=== PATIENT | male | born 1945 | race Caucasian/White ===

== ENCOUNTER 2018-09-28 19:35 | Inpatient (IN) ==
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
[2018-09-28] MEDS ORDERED: NS 500 ML IV ONE (20:53)
--- NOTE | 2018-09-28 20:53 | Diag Imaging Result Doc PS360 ---
EXAM: LUMBAR SPINE 2-VIEWS 09/28/2018 HISTORY: fall injuried lumbar spine. TECHNIQUE: Lumbosacral spine series 2 views COMMENT: The pedicles are intact. There is disc space narrowing and osteophyte formation at L3-4 and L4-5 and L5-S1. There is dense calcification of the abdominal aorta which does not appear to be distended. No evidence of acute fracture or subluxation is present. IMPRESSION: No acute bony abnormality. Degenerative disc disease. Electronically signed by Orestes Mtz 09/28/2018 8:51 PM
--- NOTE | 2018-09-28 21:20 | EKG Report ---
Test Performed on : 09/28/2018 7:42:13 PM Test Reason : syncope Blood Pressure : / mmHG Vent. Rate : 075 BPM Atrial Rate : 086 BPM P-R Int : 000 ms QRS Dur : 142 ms QT Int : 460 ms P-R-T Axes : 000 197 -27 degrees QTc Int : 513 ms Suspect arm lead reversal, interpretation assumes no reversal Wide QRS rhythm. Right bundle branch block Cannot rule out Anteroseptal infarct , age undetermined Abnormal ECG When compared with ECG of 01-AUG-2014 09:27, Wide QRS rhythm. has replaced Junctional rhythm. Unconfirmed Result
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
[2018-09-28 21:31] LABS: BASO# 0.02 X1000 (0.0-0.2); BASO% 0.2 % (0.0-0.8); EOS# 0.13 X1000 (0.0-0.7); EOS% 1.2 % (0.0-10.0); HEMATOCRIT 42.4 % (42.0-52.0); HEMOGLOBIN 13.8 g/dL (14.0-18.0); IMM GRAN# 0.03 X1000 (0.0-0.04); IMM GRAN% 0.3 % (0.0-0.5); LYMPH# 2.23 X1000 (1.2-3.4); LYMPH% 20.6 % (20.5-51.1); MCHC 32.5 g/dL (33-37); MCV 86.2 FL (81-99); MONO# 0.76 X1000 (0.11-0.59); NEUT# 7.66 X1000 (1.4-6.5); NEUT% 70.7 % (42.2-75.2); PLT 179 X1000 (130-400); RBC 4.92 XMIL (4.7-6.1); RDW 15.1 % (11.5-14.5); WBC 10.83 X1000 (4.8-10.8)
[2018-09-28] MEDS ORDERED: G.I. COCKTAIL PO ONE (21:50)
[2018-09-28 21:51] LABS: ALB/GLOB RATIO 1.3; ALBUMIN 4.1 g/dL (3.5-5.0); CALCIUM 8.2 mg/dL (8.8-10.2); CREATININE 1.4 mg/dL (0.7-1.2); POTASSIUM 4.8 mmol/L (3.5-5.1); TOTAL BILIRUBIN 0.64 mg/dL (0.20-1.00); TOTAL PROTEIN 7.3 g/dL (6.3-8.3)
--- NOTE | 2018-09-28 23:02 | PROVIDER DOCUMENTATION ---
This chart was entered by Shantell aNva Scribe, acting as scribe for Avelino Hu MD. HPI-General Adult - General Chief Complaint: Dizziness Stated Complaint: PASSED OUT/FACIAL INJURY Time Seen by Provider: 09/28/18 20:43 Source: patient Allergies/Adverse Reactions: Patient Allergies Allergy/AdvReac Type Severity Reaction Status Date / Time No Known Allergies Allergy Verified 08/01/14 09:37 Home Medications: Home Medication List Medication Instructions Recorded Confirmed Last Taken Type Pantoprazole [Protonix] 40 mg PO DAILY@0700 02/03/14 06/29/16 06/29/16 07:30 History Potassium Chloride 10 meq PO DAILY 06/05/14 06/29/16 06/29/16 07:30 History Alprazolam [Xanax] 0.5 mg PO BID 06/28/16 06/29/16 06/28/16 18:00 History Aspirin 81 mg PO DAILY 06/28/16 06/29/16 06/28/16 18:00 History Atorvastatin Calcium [Lipitor] 40 mg PO DAILY 06/28/16 06/29/16 06/29/16 07:30 History Carvedilol [Coreg] 3.125 mg PO BID 06/28/16 06/29/16 06/29/16 07:30 History Cholecalciferol (Vitamin D3) 2,000 unit PO BID 06/28/16 06/29/16 06/28/16 12:00 History [Vitamin D3] Fish Oil/Dha/Epa [Fish Oil 1,200 1 each PO DAILY 06/28/16 06/29/16 06/28/16 08:00 History mg Fish Oil] Furosemide [Lasix] 40 mg PO DAILY 06/28/16 06/29/16 06/29/16 07:30 History Hum Insulin NPH/Reg Insulin Hm 0 unit SQ PRN PRN 06/28/16 06/29/16 06/27/16 18:00 History [Novolin 70-30 100 Unit/ml Vial] Oxycodone HCl/Acetaminophen 1 each PO 4XDAY 06/28/16 06/29/16 06/28/16 11:30 History [Endocet 10-325 mg Tablet] Sennosides/Docusate Sodium [Stool 1 each PO TID 06/28/16 06/29/16 06/28/16 21:00 History Softener Tablet] Sertraline HCl [Zoloft] 100 mg PO DAILY 06/28/16 06/29/16 06/28/16 18:00 History - History of Present Illness -Gen Adult Nature of Presenting Problems: Pt is 73/M presenting to ED after becoming dizzy at home when looking up into a cabinet, he then fell and hit his philtrum on the counter and passed out., Pt sts that he has had several episodes of dizziness over the last week. After passing out, pt took 2 nitro. He sts that he is now SOB and nauseous. Location of Pain/Injury: reports: face Pain Radiation: reports: no radiation Quality of Pain: reports: none Severity: reports: mild Onset/Duration: reports: gradual Timing: reports: still present Context/Activities at Onset: reports: none Modifying Factors: improves with: nothing Associated Symptoms: reports: dizziness, nausea, shortness of breath. denies: cough, vomiting Similar Symptoms Previously?: Yes Recently seen or treated by another doctor?: No Review of Systems - Adult - REVIEW OF SYSTEMS - ADULT Constitutional: reports: no symptoms reported. denies: chills, fever Eyes: reports: no symptoms reported Ears, Nose, Mouth & Throat: reports: no symptoms reported Cardiovascular: reports: no symptoms reported. denies: chest pain Respiratory: reports: shortness of breath. denies: cough Gastrointestinal: reports: nausea. denies: abdominal pain, diarrhea, vomiting Genitourinary: reports: no symptoms reported Musculoskeletal: reports: no symptoms reported Integumentary: reports: no symptoms reported Neurological: reports: no symptoms reported. denies: dizziness/vertigo, headache/migraines Psychiatric: reports: no symptoms reported Endocrine: reports: no symptoms reported Hematologic/Lymphatic: reports: no symptoms reported Allergic/Immunologic: reports: no symptoms reported All Other Systems: Reviewed and Negative Past History - Adult - PAST MEDICAL HISTORY-ADULT Review of Records: reports: Old Records Reviewed, Nursing Assessment Review, Medications Reviewed, Social history reviewed & non-contributory. Cardiovascular: reports: CHF, HTN, hyperlipidemia, pacemaker Gastrointestinal: reports: cancer (colon) Musculoskeletal: reports: arthritis Neurological: reports: dementia Endocrine/Immune: reports: Diabetes, Lymphoma (large basel cell ) Other Conditions: reports: other cancer (groin cancer) - PRIOR SURGERIES/PROCEDURES Surgical/Procedure History: reports: cardiac stent, indwelling device (port a cath placed), bowel surgery (colon resection), other (right eye removed with prosthesis) - IMMUNIZATION STATUS Flu Vaccine: UTD - SOCIAL HISTORY Smoking: denies, non-smoker Substance Use: none/never Alcohol Use Frequency: never Living Situation: family Physical Exam-General - PHYSICAL EXAM-ADULT Initial Vital Signs Reviewed: Yes - CONSTITUTIONAL General Appearance: appears well, alert - EYES Eyes: PERRL/EOMI, pink conjunctivae - HEAD, EARS, NOSE, MOUTH & THROAT HENMT: normocephalic/atraumatic, moist mucous membranes, normal ENT inspection - NECK Neck: non-tender, full range of motion, supple - RESPIRATORY Respiratory: lungs clear - CARDIOVASCULAR Cardiovascular: regular rate, rhythm - MUSCULOSKELETAL Extremity: normal range of motion, non-tender, normal gait, normal inspection - SKIN Integumentary: normal color, warm/dry - NEUROLOGIC Neurologic: grossly normal - PSYCHIATRIC Psych/Mental Status: normal mood/affect, normal thought content, normal thought process, oriented x 3 Progress - PLAN OF CARE/RESULTS Progress/Plan/Lab Results: Vital Signs - 8 hr 09/28/18 19:35 Temperature 97.5 F L Pulse Rate 75 Respiratory Rate 17 Blood Pressure 94/59 O2 Sat by Pulse Oximetry 97 Laboratory Results - last 24 hr 09/28/18 20:13 POC Glucose 180 H D Orders Category Date Time Status CT HEAD W/O CONTRAST [CT] Stat Exams 09/28/18 19:58 Completed FACIAL BONES [RAD] Stat Exams 09/28/18 19:59 Completed LUMBAR SPINE 2-VIEWS [RAD] Stat Exams 09/28/18 20:00 Taken Result Diagrams: 09/28/18 20:19 09/28/18 20:19 Departure - Departure Date of Disposition Decision: 09/28/18 Time of Disposition Decision: 23:02 DIAGNOSIS: Syncope Qualifiers: Syncope type: unspecified Qualified Code(s): R55 - Syncope and collapse Disposition: ADMITTED INPATIENT 09 Certified Medical Emergency: Emergent Condition: Stable Referrals and Follow-Ups: Alessio Sanders MD [Primary Care Provider] - - Critical Care Note This patient required my direct & personal management of CC.: No Attestation - Physician/ ANTONIA Attestation Patient care was provided by Advanced Practice Provider:: No The physician spent face to face time with patient:: Yes Advanced Practice Provider documentation review:: Supervising physician onsite and consulted in the evaluation and care of this patient. The physician did have a face to face encounter with the patient. This chart was documented by the indicated scribe, (Shantell Nava, Scribe) and accurately reflects the services I performed and decisions made by me, Avelino Hu MD, as attested by the provider's signature.
[2018-09-28 23:33] LABS: URINE SOURCE CLEAN CATCH
[2018-09-28 23:41] LABS: BILIRUBIN URINE NEGATIVE (NEGATIVE); BLOOD URINE NEGATIVE (NEGATIVE); COLOR YELLOW; GLUCOSE URINE 100 mg/dL (NEGATIVE); KETONE URINE TRACE mg/dL (NEGATIVE); LEUKOCYTES URINE NEGATIVE (NEGATIVE); NITRITE URINE NEGATIVE (NEGATIVE); PH URINE 5.5; PROTEIN URINE TRACE mg/dL (NEGATIVE); SP GRAVITY URINE 1.028; TURBIDITY URINE CLEAR (CLEAR); UROBILINOGEN URINE 2 mg/dL (NORMAL)
[2018-09-28 23:57] LABS: UR EPITHELIAL CELLS <10 /HPF (<10); URINE BACTERIA NEGATIVE /HPF; URINE RBC <10 /HPF (<10); URINE WBC <10 /HPF (<10)
[2018-09-29] MEDS ORDERED: TYLENOL PO PRN (00:56)
[2018-09-29] MEDS ORDERED: LOVENOX SUBQ SCH (01:15)
[2018-09-29 01:17] LABS: URINE CASTS NONE SEEN; URINE YEAST NONE SEEN
[2018-09-29 01:18] LABS: URINE CRYSTALS CA OXALATE PRESENT; URINE SMALL ROUND CELLS NONE SEEN
[2018-09-29] MEDS: HUMULIN R SUBQ SCH ×5 (02:51→21:36)
[2018-09-29] MEDS: BACTROBAN OINTMENT TOP SCH ×3 (02:51→21:36)
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
[2018-09-29] MEDS: PERCOCET-10 PO PRN ×3 (03:36→17:12)
[2018-09-29] MEDS: PROTONIX PO SCH (06:35)
[2018-09-29] MEDS: ZOLOFT PO SCH (08:40)
[2018-09-29] MEDS: FISH OIL CONCENTRATE PO SCH (08:40)
[2018-09-29] MEDS: ASPIRIN PO SCH (08:40)
[2018-09-29] MEDS: PERICOLACE PO SCH ×3 (08:40→17:08)
[2018-09-29] MEDS: LIPITOR PO SCH (08:41)
[2018-09-29] MEDS: VITAMIN D PO SCH ×2 (08:41→21:36)
[2018-09-29] MEDS ORDERED: KLOR-CON PO SCH (09:00)
[2018-09-29] MEDS ORDERED: LASIX PO SCH (09:00)
[2018-09-29] MEDS: ZOFRAN IV PRN ×2 (09:41→18:38)
[2018-09-29] MEDS: TUMS PO PRN (12:40)
--- NOTE | 2018-09-29 13:26 | PROGRESS NOTE ---
DATE: 09/29/2018 PRIMARY CARE PHYSICIAN: Dr. Alessio Sanders. 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 Per report, patient states he looked up while in his kitchen and developed dizziness. The patient suffered a syncopal episode immediately thereafter. He struck his upper lip and arm upon falling. He is unsure as to how long he was unresponsive. The patient's family and EMS were contacted. Patient was transported to the emergency department for further evaluation and management. Upon arrival, blood pressure was noted to be low at 94/59. Laboratory data returned with only a slight increase in creatinine above baseline to 1.4. Because of patient's extensive cardiac history, patient was admitted for further evaluation and management. Of note, over the course of the last week, patient has experienced increasing dizziness. He has noted a decrease in appetite as well as a decrease in energy. He has had some urinary hesitancy as well as some urinary incontinence but denies dysuria, hematuria, or pyuria. He has chronic shortness of breath. He has noted this to be slightly above his baseline. Overnight, patient states he did reasonably well. He has had no further syncopal episodes. This morning, he ate breakfast and developed some associated nausea. He attributes this to the sausage. OBJECTIVE: T-max 98.6 degrees, heart rate 60 to 82, respirations 16 to 20, blood pressure 94 to 158 over 59 to 98.General: Well nourished, well developed, no acute distress. Cardiovascular: Regular rate and rhythm. No significant murmurs, rubs, or gallops. Pulmonary: Clear to auscultation bilaterally. Abdomen: Soft, nontender, nondistended. Positive bowel sounds. Extremities: Moves all extremities well. No significant clubbing, cyanosis, or edema. Dermatologic: Evaluation reveals no evidence of rash. LABORATORY DATA: None. ASSESSMENT AND PLAN: 1. Syncopal episode-in the setting of congestive heart failure and extensive cardiac history, cardiac etiology will need to be ruled out. We will continue patient on telemetry. Echocardiogram has been ordered. I discussed case with Dr. Bill. We will have him consult and consider pacemaker/defibrillator interrogation. If cardiac etiology is deemed negative, we will consider alternative sources including inner ear, carotid artery disease, medication associated, and orthostasis in etiology. 2. Systolic congestive heart failure-we will continue patient on Coreg therapy. We will hold patient's Lasix for now. We will follow his volume status. As above, we will plan echocardiogram in the near future. 3. Acute renal failure-the patient's creatinine has increased to 1.4 above his baseline of 1.1. We will hold patient's Lasix as described above. 4. Diabetes-we will continue sliding scale insulin. 5. History of colon cancer-we will remain aware. He is followed routinely by Dr. Shelton. 6. Hyperlipidemia-we will continue patient on atorvastatin therapy. 7. Atrial fibrillation-patient's EKG suggests a paced rhythm. He is anticoagulated with Xarelto therapy. We will remain aware. 8. Hypertension-I am concerned the patient may be experiencing orthostatic symptoms. We will hold Lasix as above. We will continue Coreg therapy. 9. Disposition-at this point, patient continues to require jail care in a hospital setting. We will plan discharge home once appropriate. cc: MD Alessio Rangel MD
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
--- NOTE | 2018-09-29 14:51 | Diag Imaging Result Doc PS360 ---
CERVICAL SPINE 2-VIEWS - 09/29/2018 INDICATION: syncope TECHNIQUE: COMPARISON: None FINDINGS: C7 is completely obscured. Alignment is anatomic. No fracture or dislocation. There are multiple metallic foreign bodies in the soft tissues of the upper chest and neck. There is mild degenerative disc disease at C5-6. IMPRESSION: No acute injury. Electronically signed by Adams Myers 09/29/2018 2:49 PM
--- NOTE | 2018-09-29 16:44 | ECHO REPORT ---
ORDER DATE: 09/29/2018 STUDY PERFORMED: A 2D echocardiogram. MEASUREMENTS: Interventricular septum 1.0, left ventricular posterior wall 1.1, diastolic diameter 5.6, left atrium 5, aorta 3.5 cm. SUMMARY OF THE 2-DIMENSIONAL IMAGIN. Technically suboptimal study. Very poor acoustic window. 2. Optison was used to assess left ventricular systolic function. Normal left ventricular cavity size. Estimated ejection fraction of 40 percent to 45 percent. There is apical hypokinesis. 3. Aortic valve leaflets were sclerosed, trileaflet. 4. Pulmonic valve was normal. There was mild pulmonary regurgitation. 5. There was mitral annular calcification. 6. Tricuspid valve was normal. 7. Pacing leads were noted in the right chamber. 8. There is moderate mitral regurgitation. Peak velocity across the aortic valve was less than 2 m/sec. There is no aortic stenosis. There is mild aortic regurgitation. There is aortic sclerosis. 9. Mild tricuspid regurgitation. Peak velocity across the tricuspid valve was less than 2 m/sec. 10. There is no pericardial effusion. cc: MD Alessio Goodwin MD
[2018-09-29] MEDS: XARELTO PO SCH (17:09)
[2018-09-29] MEDS: COREG PO SCH (21:35)
[2018-09-29] MEDS: XANAX PO SCH (21:35)
[2018-09-30] MEDS: TUMS PO PRN (01:03)
[2018-09-30] MEDS: PERCOCET-10 PO PRN ×4 (01:03→22:20)
[2018-09-30] MEDS: ZOFRAN IV PRN (02:53)
--- NOTE | 2018-09-30 06:41 | EKG Report ---
Test Performed on : 09/30/2018 06:02:56 AM Test Reason : syncope Blood Pressure : / mmHG Vent. Rate : 087 BPM Atrial Rate : 078 BPM P-R Int : 000 ms QRS Dur : 150 ms QT Int : 466 ms P-R-T Axes : 000 206 -14 degrees QTc Int : 560 ms Ventricular-paced rhythm with frequent premature ventricular complexes. Biventricular pacemaker detected Abnormal ECG When compared with ECG of 28-SEP-2018 19:42, (Unconfirmed) PVCs are now present. Confirmed by Deacon Xavier MD ([id number]) on 10/03/2018 8:45:41 PM
[2018-09-30] MEDS: HUMULIN R SUBQ SCH ×4 (06:45→20:51)
[2018-09-30] MEDS: PROTONIX PO SCH (06:45)
[2018-09-30 08:02] LABS: BASO# 0.01 X1000 (0.0-0.2); BASO% 0.1 % (0.0-0.8); EOS# 0.12 X1000 (0.0-0.7); EOS% 1.3 % (0.0-10.0); HEMATOCRIT 37.7 % (42.0-52.0); HEMOGLOBIN 12.3 g/dL (14.0-18.0); IMM GRAN# 0.03 X1000 (0.0-0.04); IMM GRAN% 0.3 % (0.0-0.5); LYMPH# 1.99 X1000 (1.2-3.4); LYMPH% 21.4 % (20.5-51.1); MCH 28.1 PG (27-31); MCHC 32.6 g/dL (33-37); MCV 86.3 FL (81-99); MONO# 0.72 X1000 (0.11-0.59); MONO% 7.8 % (1.7-9.3); MPV 9.3 FL (7.4-10.4); NEUT# 6.42 X1000 (1.4-6.5); NEUT% 69.1 % (42.2-75.2); PLT 124 X1000 (130-400); RBC 4.37 XMIL (4.7-6.1); RDW 14.9 % (11.5-14.5); WBC 9.29 X1000 (4.8-10.8)
[2018-09-30 08:18] LABS: HEMOGLOBIN A1C 8.5 % (4.8-6.0)
[2018-09-30 08:26] LABS: AGAP 11; ALB/GLOB RATIO 1.1; ALBUMIN 3.7 g/dL (3.5-5.0); ALKALINE PHOSPHATASE 71 U/L (32-122); BUN 17 mg/dL (8-22); CALCIUM 9.3 mg/dL (8.8-10.2); CHLORIDE 102 mmol/L (98-107); CK PROFILE 66 U/L (24-204); COSMO 289; ESTIMATED GFR > 60; GLUCOSE 169 mg/dL (70-104); GOT 19 U/L (10-34); GPT 12 U/L (10-44); POTASSIUM 4.5 mmol/L (3.5-5.1); SODIUM 142 mmol/L (136-145); TCO2 29 mmol/L (25-35); TOTAL BILIRUBIN 0.91 mg/dL (0.20-1.00)
[2018-09-30] MEDS: ZOLOFT PO SCH (08:52)
[2018-09-30] MEDS: COREG PO SCH ×2 (08:52→20:50)
[2018-09-30] MEDS: VITAMIN D PO SCH ×2 (08:52→20:50)
[2018-09-30] MEDS: LIPITOR PO SCH (08:53)
[2018-09-30] MEDS: BACTROBAN OINTMENT TOP SCH ×2 (08:53→20:51)
[2018-09-30] MEDS: PERICOLACE PO SCH ×3 (08:53→16:04)
[2018-09-30] MEDS: ASPIRIN PO SCH (08:53)
[2018-09-30] MEDS: FISH OIL CONCENTRATE PO SCH (08:53)
[2018-09-30 09:02] LABS: FREE T4 0.98 ng/dL (0.93-1.70); TSH 2.74 uIUmL (0.27-4.20)
[2018-09-30] MEDS ORDERED: MIRALAX PO ONE (12:12)
--- NOTE | 2018-09-30 12:42 | PROGRESS NOTE ---
DATE: 09/30/2018 SUBJECTIVE: Over the course of the last 24 hours, the patient states he has done reasonably well. He has had no further syncopal or near syncopal episodes. He has tolerated minor medication changes well. Dr. Bill was consulted yesterday. Echocardiogram was performed. This returned with an ejection fraction of 40 to 45 percent with apical hypokinesis. Moderate valvular disease was also identified. In addition, the patient had a pacemaker interrogation. No evidence of arrhythmia or defibrillation was noted. This morning, the patient complained only of lower abdominal discomfort. The patient states his symptoms are very consistent with his history of constipation. He has taken Radha-Colace, although without success. He denies fevers, chills, nausea, vomiting, shortness of breath, chest discomfort, or palpitations. OBJECTIVE: T-max 98.6 degrees, heart rate 62 to 92, respirations 16 to 20, blood pressure 94- 148/59-96. General: Well-nourished, well-developed, in no acute distress. Cardiovascular: Regular rate and rhythm. No significant murmurs, rubs, or gallops. Pulmonary: Clear to auscultation bilaterally. Abdomen: Soft. Minor tenderness in the right lower quadrant, suprapubic region, and left lower quadrant without guarding or rebound. Positive bowel sounds. Extremities: Moves all extremities well. No significant clubbing, cyanosis, or edema. Dermatologic: Evaluation reveals no evidence of rash. Laboratory Data: White blood cell count 9.29, hemoglobin 12.3, hematocrit 37.7, platelet count is 124,000. Sodium 142, potassium 4.5, chloride 102, bicarb 29, BUN 17, creatinine 1.0, glucose 169, hemoglobin A1c is 8.5, calcium 9.3, magnesium 2.0. Total bilirubin 0.91, total protein 7.0, albumin 3.7, alkaline phosphatase 71, AST 19, ALT 12. TSH 2.74 and free T4 of 0.98. ASSESSMENT AND PLAN: 1. Syncopal episode-in the setting of congestive heart failure and extensive cardiac history, I continue to feel full cardiac evaluation needs to be ruled out. Echocardiogram has been performed which demonstrated apical hypokinesis and valvular heart disease. Ejection fraction was noted to be 40 to 45 percent. Stress testing is scheduled per Dr. Bill tomorrow. As above, pacemaker/defibrillator interrogation returned without evidence of arrhythmia or defibrillation. Carotid Dopplers are scheduled for tomorrow. We will remain aware that this appears to be somewhat positional. The patient notes dizziness upon flexion and extension of his neck. The question is raised whether this could be secondary to vertebrobasilar insufficiency which is positional in etiology. We will defer further management depending on cardiac evaluation. Additionally, we will consider inner ear, medication associated, and orthostasis as potential causes. 2. Systolic congestive heart failure-we will continue patient on Coreg therapy. His Lasix has been held. We will plan to resume this once appropriate. Today, he is euvolemic. 3. Acute renal failure-upon admission, creatinine was noted to be 1.4. Today, withholding Lasix therapy, his creatinine is 1.0. We will remain aware. 4. Diabetes-the patient's diabetes is suboptimally controlled per hemoglobin A1c of 8.4. For now, we will continue patient on sliding scale insulin. We will defer outpatient management to Dr. Sanders. 5. History of colon cancer-patient is followed routinely by Dr. Shelton. We will remain aware. 6. Hyperlipidemia-we will continue patient on atorvastatin therapy. 7. Atrial fibrillation-EKG has suggested a paced rhythm. He is anticoagulated with Xarelto. He denies significant symptoms. 8. Hypertension-the patient's Lasix has been held. His Coreg has been continued. Blood pressure has improved from admission. We will remain aware that orthostasis may be playing a role in his dizziness and syncopal episodes. 9. Disposition-at this point, patient continues to require usp care in a hospital setting. We will plan discharge home once appropriate. cc: MD Alessio Rangel MD
[2018-09-30] MEDS: XARELTO PO SCH (16:04)
[2018-09-30] MEDS ORDERED: DULCOLAX PR ONE (19:00)
[2018-09-30] MEDS: XANAX PO SCH (20:50)
[2018-09-30] MEDS: MIRALAX PO SCH (20:51)
[2018-10-01] MEDS: PROTONIX PO SCH (06:16)
[2018-10-01] MEDS: HUMULIN R SUBQ SCH ×4 (06:16→22:11)
[2018-10-01] MEDS: PERCOCET-10 PO PRN ×3 (08:00→22:09)
[2018-10-01 08:16] LABS: BASO% 0.2 % (0.0-0.8); HEMATOCRIT 39.1 % (42.0-52.0); HEMOGLOBIN 12.7 g/dL (14.0-18.0); IMM GRAN% 0.3 % (0.0-0.5); LYMPH% 19.9 % (20.5-51.1); MCHC 32.5 g/dL (33-37); MCV 86.3 FL (81-99); MONO% 7.2 % (1.7-9.3); MPV 9.7 FL (7.4-10.4); NEUT# 7.73 X1000 (1.4-6.5); NEUT% 71.4 % (42.2-75.2); PLT 138 X1000 (130-400); RBC 4.53 XMIL (4.7-6.1); RDW 15.1 % (11.5-14.5); WBC 10.83 X1000 (4.8-10.8)
[2018-10-01 08:17] LABS: BASO# 0.02 X1000 (0.0-0.2); EOS# 0.11 X1000 (0.0-0.7); IMM GRAN# 0.03 X1000 (0.0-0.04); LYMPH# 2.16 X1000 (1.2-3.4); MONO# 0.78 X1000 (0.11-0.59)
[2018-10-01 08:40] LABS: AGAP 11; BUN 20 mg/dL (8-22); CALCIUM 9.1 mg/dL (8.8-10.2); CHLORIDE 102 mmol/L (98-107); COSMO 288; CREATININE 1.1 mg/dL (0.7-1.2); ESTIMATED GFR > 60; GLUCOSE 165 mg/dL (70-104); POTASSIUM 4.5 mmol/L (3.5-5.1); SODIUM 141 mmol/L (136-145); TCO2 28 mmol/L (25-35)
--- NOTE | 2018-10-01 09:24 | PROGRESS NOTE ---
DATE: 10/01/2018 SUBJECTIVE: Mr. Duran is a 73-year-old who presented to the emergency room on 09/29/2018. He has a past medical history of diabetes mellitus type 2, hypertension, hyperlipidemia, congestive heart failure, colon cancer, stomach cancer. PAST MEDICAL HISTORY: 1. The patient states that he had pacemaker/defibrillator placed in 2017. He presented to the emergency room with syncopal episode on 09/29/2018. He states he was in the kitchen, looked up, and he did fall and hit the side of the countertop. The patient states a history of syncopal episode, but he had been having some weakness and dizziness. Dr. Shelton follows him for colon cancer. It has been 3 years since he had his treatment. The patient denies any pain. Says he has had some problems with urinating and a bit of incontinence, trouble getting his flow started, and he has had some problems with falling in the past prior to putting in his defibrillator/pacemaker. He also had weakness in the past, seen by Dr. Barba of Cardiology. CT scan was performed in the emergency room, which showed no acute intracranial disease. X-ray in the ER showed cardiomegaly, so admitted with syncopal episode. At the present time, he is getting an echocardiogram, and I think they planned a GXT as well. 2. History of congestive heart failure. ProBNP when he came in was 2559. 3. Acute kidney injury. Creatinine was 1.4. BUN is normal. 4. Diabetes mellitus type 2. Pattern his sugars. 5. History of colon cancer. I think 3 years ago was his treatment. He gets followup with Dr. Shelton. 6. Hyperlipidemia. 7. Hypertension. 8. Paronychia. The patient had some nail irritation, and was put on some Bactroban. LABORATORY DATA: Review of his lab shows hematocrit 39, hemoglobin 12, white blood cell count 10,830, platelet count 138,000. Electrolytes: Creatinine came down to 1.0. His blood sugars have been 248, 192, 192, 143, and 165. Urinalysis was unremarkable. REVIEW OF CURRENT MEDICATIONS: He is on Xanax 0.5 mg at bedtime, aspirin 81 mg a day, Lipitor 40 mg a day, calcium carbonate 500 mg before meals and at bedtime, Coreg 3.125 mg p.o. b.i.d., vitamin D3 at 2000 units twice a day, omega-3 fatty acids 1000 mg daily, Protonix 40 mg a day, MiraLAX 17 grams twice a day, Xarelto 20 mg a day, Zoloft 100 mg daily. PLAN: Cardiology was consulted. He had an episode of dizziness, syncopal episode. Whenever he moves his head or looks down, he has dizzy episodes. Otherwise, walking on flat ground, he does not have any problem. He does have degenerative arthritis, and may have some significant cervical disk disease, but evaluating from a cardiac standpoint, he has a [employer] device pacemaker, both right ventricle and left ventricular leads, has no obvious ventricular tachycardia or supraventricular tachycardia at this point that has been identified, and they are going to investigate or interrogate the AICD. Cervical films were done. C7 is completely obscured. Multiple metallic foreign bodies in the soft tissue of the upper chest and neck. Mild degenerative disk disease at C5-6. cc: Alessio Sanders MD
[2018-10-01] MEDS: MIRALAX PO SCH ×2 (09:31→22:10)
[2018-10-01] MEDS: PERICOLACE PO SCH ×3 (09:32→17:16)
[2018-10-01] MEDS: VITAMIN D PO SCH ×2 (09:32→22:10)
[2018-10-01] MEDS: LIPITOR PO SCH (09:32)
[2018-10-01] MEDS: ZOLOFT PO SCH (09:32)
[2018-10-01] MEDS: FISH OIL CONCENTRATE PO SCH (09:33)
[2018-10-01] MEDS: ASPIRIN PO SCH (09:33)
[2018-10-01] MEDS: BACTROBAN OINTMENT TOP SCH ×2 (09:34→22:10)
[2018-10-01] MEDS: COREG PO SCH ×2 (09:34→22:08)
[2018-10-01] MEDS ORDERED: LEXISCAN ONE (11:14)
--- NOTE | 2018-10-01 14:42 | Diag Imaging Result Document ---
PROCEDURE NAME: MYOCARDIAL PERF SCAN, STR/REST - 10/01/2018 INDICATION: This is a 73-year-old male with a complaint of syncope, coronary heart disease and pacemaker. DESCRIPTION OF PROCEDURE: The patient came into the nuclear lab and received a rest injection of technetium 99 sestamibi 14.3 mCi. Multiple tomographic views of the cardiac structures were obtained at rest. Subsequently the patient underwent infusion of Lexiscan 0.4 mg and at peak infusion was injected with technetium 99 sestamibi 43.3 mCi. Multiple tomographic views of the cardiac structures were obtained following completion of the exercise protocol. SUMMARY OF ELECTROCARDIOGRAPHIC PORTION OF THE STUDY: Resting ECG shows what appears to be ventricular paced rhythm with an underlying atrial fibrillation. Rate is 75 beats per minute. Resting blood pressure is 130/74. During the infusion of Lexiscan, the heart rate increased to 83 beats per minute. Blood pressure dropped to 103/72. ECG showed no significant abnormalities other than some PVCs. Following the completion of the test, the heart rate and blood pressure returned back to baseline. CONCLUSIONS: In summary, electrocardiographic response to infusion of Lexiscan is deemed to be inconclusive due to presence of pacemaker activity. SUMMARY OF MYOCARDIAL PERFUSION PORTION OF THE STUDY: Poststress tomographic views of the left ventricle showed a somewhat distribution of radiotracer without any definite ischemic defect. The rest images showed similar findings. There is no convincing evidence of neither scar nor ischemia. Gated SPECT shows mildly decreased ejection fraction. Using the Trent tool software, ejection fraction is 45%. Using the Myometrix software is 39%. Ventricular volumes are increased somewhat. Lung/heart ratio is normal. TID is normal. CONCLUSIONS: In summary, this study showed: 1. Inconclusive ECG response to infusion of Lexiscan. 2. Probably normal poststress myocardial perfusion scan. There is no scintigraphic evidence of pharmacologically induced myocardial ischemia. There is somewhat patchy distribution of radiotracer without any definite ischemic defect or scar. 3. Mildly decreased ejection fraction estimated at 39% to 45%, with generous ventricular chamber size. No wall motion abnormality noted. The impairment appears to be global. Clinical correlation is recommended. cc: MD Santi Moran MD [facility]
[2018-10-01] MEDS: XARELTO PO SCH (17:14)
[2018-10-01] MEDS: XANAX PO SCH (22:08)
[2018-10-02] MEDS: HUMULIN R SUBQ SCH ×2 (06:12→12:16)
[2018-10-02] MEDS: PROTONIX PO SCH (06:12)
[2018-10-02] MEDS: COREG PO SCH (10:23)
[2018-10-02] MEDS: ASPIRIN PO SCH (10:23)
[2018-10-02] MEDS: FISH OIL CONCENTRATE PO SCH (10:23)
[2018-10-02] MEDS: ZOLOFT PO SCH (10:23)
[2018-10-02] MEDS: VITAMIN D PO SCH (10:23)
[2018-10-02] MEDS: PERICOLACE PO SCH ×2 (10:23→12:18)
[2018-10-02] MEDS: LIPITOR PO SCH (10:23)
[2018-10-02] MEDS: MIRALAX PO SCH (10:28)
[2018-10-02] MEDS: PERCOCET-10 PO PRN (10:30)
--- NOTE | 2018-10-02 10:46 | Carotid Study ---
DATE: 10/01/2018 REQUESTING PHYSICIAN: Dr. Xavier. STANDARD MACHINE STITCHER: Rayne. Previous comparison from 05/25/2018. INDICATION: Syncopal episode. EQUIPMENT: [employer] Vivid E9 ultrasound system with a 9 L-D transducer. FINDINGS: Diagram ultrasound images could be seen scanned into the patient's medical record. Peak systolic velocity in the internal system was noted to be 93 on the right, 90 on the left. Calculated internal to common ratio on the right 1.33, left 1.34. Calculated stenosis on the right 0% to 39%, left 0% to 39%. There appears to be some irregular calcific plaques noted to bilateral carotid arteries, but at this time, by strict velocity criteria, this does not produce any hemodynamically significant flow-limiting stenosis. Both vertebral arteries were antegrade flow. When compared to previous study, this is essentially stable. INTERPRETATION: Stable carotid ultrasound when compared to study done on 05/25/2018. No hemodynamically significant flow-limiting stenosis noted by strict velocity criteria. cc: MD Deacon Saeed MD Allen J. Schmidt, MD MTDD
[2018-10-02] MEDS: BACTROBAN OINTMENT TOP SCH (10:53)
[2018-10-02 12:22] VITALS: BP 115/66
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
== END 2018-10-02 17:16 | disposition home health service (06) | DRG 552 ==
LOC: ED 19:35 → SUATTDRO 09-29 01:18 → 1N 09-29 01:18
PROVIDERS: ADMIT Emergency Medicine; ATTEND Emergency Medicine
CPT/HCPCS: 70150; 70450; 71010; 71045; 72040; 72100; 78452; 80048; 80053; 81001; 82550; 82607; 82746; 82948; 83036; 83605; 83735; 83880; 84439; 84443; 84484; 85025; 93005; 93017; 93306; 93880; 94761; 96360; 99284; A9270; A9500; C8929; J1650; J2405; J2785; J7040; Q9957; XXXXX